=== PATIENT | female | born 1950 | race Caucasian/White ===

== ENCOUNTER 2016-12-27 12:31 | Day surgery (SDC) | payer OTHER ==
[~2016-12-27 12:31] MED LIST: LISI-360 PO; METF500 PO
[2016-12-27 13:44] VITALS: BP 150/95; PULSE 88; RESP 16; TEMP 100.4; O2SAT 98
--- NOTE | 2016-12-27 15:51 | RADRPT ---
EXAM DATE/TIME: 12/27/2016 13:50 [place] COMPARISON: No previous studies available for comparison. INDICATIONS : Right thyroid nodule. MEDICAL HISTORY : Hypertension. Hepatitis C. SURGICAL HISTORY : Left oophorectomy. Right elbow surgery. Tibia biopsy. ENCOUNTER: Initial ACUITY: 1 day PAIN SCORE: 0/10 LOCATION: Right lobe of the thyroid ORGAN: Right thyroid lobe SPECIMENS: Three fine needle aspirate(s) submitted for pathologic evaluation. DEVICE: 22 gauge needle Post procedure scanning reveals no hematoma or other complication. The possibility does exist that the tissue obtained will be non-diagnostic. If the sample is non-carolin gnostic a repeat biopsy or surgical biopsy may need to be performed. TECHNIQUE: 1. Ultrasound guidance for needle biopsy. 2. Needle biopsy. The risks, benefits, and alternatives to ultrasound guided needle biopsy were explained to the patien t in detail including the risk of bleeding and infection. Written and verbal informed consent was ob tained. With the patient on the ultrasound table, images were obtained. Overlying skin was prepped and drape d in the usual sterile fashion and Lidocaine was utilized as a local anesthetic. A needle was advanced into the identified target and the number of specimens as above obtained and marshall bmitted for pathologic evaluation. The patient tolerated the procedure well and left the ultrasound suite in stable condition. CONCLUSION: Uncomplicated ultrasound guided needle biopsy. Fernando Jarrett MD on December 27, 2016 at 15:48 Board Certified Radiologist. This report was verified electronically.
[2016-12-27] MEDS ORDERED: LIDOCAINE HCL 1% PF 30 ML VIAL ONE (16:11)
[2016-12-28] MEDS ORDERED: SODIUM BICARBONATE 8.4% INJ 50 ML ONE (11:35)
== END 2016-12-27 14:15 | disposition home or self-care (01) ==
LOC: HRAD 12:31 → HRIP 12:32 → HRAD 14:15
PROVIDERS: ATTEND Specialist
DX: E04.1 Nontoxic single thyroid nodule (principal); I10 Essential (primary) hypertension; B19.20 Unspecified viral hepatitis C without hepatic coma
CPT/HCPCS: 10022; 76942; 88172; 88173